=== PATIENT | male | born 1990 | race Caucasian/White ===

== ENCOUNTER 2018-04-02 13:13 | Emergency (ER) | payer SELFPAY ==
[~2018-04-02] VITALS: Ht 170.2 cm; Wt 69.9 kg
[~2018-04-02 13:13] MED LIST: NAPROXEN500 MG PO; PEN-VEE K,VEET500 MG PO
[2018-04-02 15:00] VITALS: BP 128/76
== END 2018-04-02 15:18 | disposition home or self-care (01) ==
LOC: EXP 13:13 → EME 13:13 → EXP 15:18
PROVIDERS: Physician Assistant
DX: R53.83 Other fatigue (principal); F17.200 Nicotine dependence, unspecified, uncomplicated
CPT/HCPCS: 82948; 99281; 99283